=== PATIENT | female | born 1980 | race Two or more races ===

== ENCOUNTER → 2024-02-08 14:13 | Outpatient (REF) | payer BC, SELFPAY | LOC: RAD 14:13 | PROVIDERS: ATTENDING PHYSICIAN Physician Assistant Medical | DX: M79.661 Pain in right lower leg (principal); M79.89 Other specified soft tissue disorders | CPT/HCPCS: 93971 ==

== ENCOUNTER → 2024-07-05 09:15 | Outpatient (REF) | payer BC, SELFPAY | LOC: CLAB 09:15 | PROVIDERS: ATTENDING PHYSICIAN Student in an Organized Health Care Education/Training Program | DX: M20.5X9 Other deformities of toe(s) (acquired), unspecified foot (principal) | CPT/HCPCS: 88304 ==

== ENCOUNTER → 2024-11-09 11:08 | Outpatient (REF) | payer BC, SELFPAY | LOC: WDC 11:08 | PROVIDERS: ATTENDING PHYSICIAN Physician Assistant Medical | DX: Z12.31 Encounter for screening mammogram for malignant neoplasm of breast (principal) | CPT/HCPCS: 77063; 77067 ==